=== PATIENT | female | born 1975 | race African-American/Black ===

== ENCOUNTER 2023-08-03 07:19 | Day surgery (SDC) | payer OTHER ==
[2023-07-30 16:53] VITALS: BMI 35.9
[2023-08-03] MEDS ORDERED: BUPIVACAINE HCL/PF 0.5% (5MG/ML) 10 ML VIAL ONE (07:50)
[2023-08-03] MEDS ORDERED: FENTANYL CITRATE/PF 50 MCG/ML VIAL ONE (07:54)
[2023-08-03] MEDS ORDERED: MIDAZOLAM HCL 2 MG/2 ML SINGLE DOSE VIAL ONE (07:54)
[2023-08-03] MEDS ORDERED: MORPHINE SULFATE 10 MG/1 ML *VIAL ONE (07:55)
[2023-08-03] MEDS ORDERED: SUCCINYLCHOLINE CHLORIDE 200 MG/10 ML VIAL ONE (08:15)
[2023-08-03] MEDS ORDERED: PROPOFOL 40 ML ONE (08:15)
[2023-08-03] MEDS ORDERED: ceFAZolin SODIUM 1 GM VIAL ONE ×2 (08:20→08:21)
[2023-08-03] MEDS ORDERED: KETOROLAC TROMETHAMINE 30 MG/1 ML VIAL ONE (08:20)
[2023-08-03] MEDS ORDERED: ONDANSETRON 4 MG/2 ML VIAL ONE (08:20)
[2023-08-03] MEDS ORDERED: DEXAMETHASONE SOD PHOSPHATE 4 MG/1 ML VIAL ONE (08:20)
[2023-08-03] MEDS: ACETAMINOPHEN 1000 MG/100 ML BAG IVPB ONE (09:25)
[2023-08-03] MEDS ORDERED: oxyCODONE HCL 5 MG TABLET PO PRN (09:25)
[2023-08-03] MEDS ORDERED: ONDANSETRON 4 MG/2 ML VIAL IVPUSH PRN (09:25)
[2023-08-03] MEDS ORDERED: LACTATED RINGERS SOLUTION 1,000 ML IV SCH (09:30)
[2023-08-03 10:41] VITALS: RESP 18; TEMP 98.1
[2023-08-03 11:13] VITALS: BP 126/74; PULSE 71
== END 2023-08-03 11:23 | disposition home or self-care (01) ==
LOC: FASU 07:19 → EDBD 12:00
PROVIDERS: ATTEND Orthopaedic Surgery
PROC: 0SBC4ZZ Excision of Right Knee Joint, Percutaneous Endoscopic Approach (ICD-10-PCS; 2023-08-03)
PROC: 0SBC4ZZ Excision of Right Knee Joint, Percutaneous Endoscopic Approach (ICD-10-PCS; principal; 2023-08-03 08:46)
DX: S83.241A Other tear of medial meniscus, current injury, right knee, initial encounter (principal); S83.281A Other tear of lateral meniscus, current injury, right knee, initial encounter; M25.661 Stiffness of right knee, not elsewhere classified; M94.261 Chondromalacia, right knee; M93.261 Osteochondritis dissecans, right knee; M94.8X6 Other specified disorders of cartilage, lower leg; M67.261 Synovial hypertrophy, not elsewhere classified, right lower leg; M25.861 Other specified joint disorders, right knee; X58.XXXA Exposure to other specified factors, initial encounter; Y93.9 Activity, unspecified; Y92.9 Unspecified place or not applicable
CPT/HCPCS: 94760; J0131